=== PATIENT | female | born 1955 | race Caucasian/White ===

== ENCOUNTER 2019-02-22 06:18 | Inpatient (IN) | payer OTHER ==
[2019-02-22] MEDS ORDERED: Pantoprazole 40 MG Vial IVPUSH ONE (06:38)
[2019-02-22] MEDS ORDERED: Famotidine 20 MG/2 ML SDV IVPUSH ONE (06:38)
[2019-02-22] MEDS ORDERED: Ondansetron 4 MG/2 ML SDV IVPUSH ONE (06:38)
[2019-02-22] MEDS ORDERED: Lactated Ringers 1,000 ML IV ONE (06:38)
--- NOTE | 2019-02-22 06:38 | EDM.PDOC ---
ED HPI GENERAL MEDICAL PROBLEM - General Chief Complaint: Abdominal Pain Stated Complaint: ABDOMINAL PAIN Time Seen by Provider: 02/22/19 06:35 Source of Information: Reports: Patient, Family (), Old Records ([facility] chart/EMR), Other ([facility] EMR) History Limitations: Reports: No Limitations - History of Present Illness INITIAL COMMENTS - FREE TEXT/NARRATIVE: The patient was brought to the emergency room via private automobile for evaluation of cramping bilateral lower quadrant 7/10 abdominal pain with symptoms starting at about 2 AM this morning. Patient has had about 10 loose bowel movements during the last 24 hours with additional nausea and 2 episodes of emesis shortly prior to arrival. She has also been having some chills, however no history of fever, use of antipyretic medication, or other medications for her symptoms to this point. Her symptoms are similar to previous episodes of diverticulitis with last episode on 12/06/18 treated with Flagyl on an outpatient basis at that time and no other recent antibiotic therapy. No known history of known exposure to infection, food poisoning, etc. No recent history of other abdominal pain, heartburn, melena, gross hematochezia , or any food intolerance, including fatty foods, etc.. She denies any gross hematuria, colic, or other UTI symptoms. The patient also denies any recent cough, wheezing, dyspnea, etc.. The patient denies any chest pain/pressure, heart flutter, dizziness, orthostasis, orthopnea, diaphoresis, paresthesias, recent decreased exercise tolerance, or any other anginal-type symptoms. She did have a half piece of toast at about 5 AM this morning. Onset: Gradual Onset Date: 02/21/19 Duration: Getting Worse, Intermittent Location: Reports: Abdomen. Denies: Head, Face, Neck, Chest, Back, Pelvis, Upper Extremity, Left, Upper Extremity, Right, Lower Extremity, Left, Radiates to Quality: Reports: Ache, Same as Previous Episode, Throbbing, Other (As above) Severity: Moderate Improves with: Reports: None Worsens with: Reports: None Context: Reports: Other (As above). Denies: Sick Contact, Trauma Associated Symptoms: Reports: Fever/Chills. Denies: Confusion, Chest Pain, Cough, Diaphoresis, Headaches, Loss of Appetite, Malaise, Nausea/Vomiting, Shortness of Breath, Syncope, Weakness Treatments ROUTE RETURNER: Reports: Other (see below) (None) Abdominal Pain Score (Numeric/FACES): 7 - Related Data Allergies Allergy/AdvReac Type Severity Reaction Status Date / Time No Known Allergies Allergy Verified 02/22/19 06:37 Home Meds: Home Meds Omeprazole [priLOSEC OTC] 20 mg PO DAILY 03/20/14 [History] buPROPion [Wellbutrin XL] 300 mg PO BEDTIME 03/20/14 [History] Multivitamins [Tab-A-Edwina] 1 each PO DAILY 02/22/19 [History] Past Medical History HEENT History: Reports: Impaired Vision, Other (See Below). Denies: Allergic Rhinitis, Cataract, Glaucoma, Hard of Hearing, Macular Degeneration, Otitis Media, Retinal Detachment Other HEENT History: Wears glasses Cardiovascular History: Reports: None. Denies: Afib, Aneurysm, Arrhythmia, Blood Clots/VTE/DVT, CAD, Heart Failure, Heart Murmur, High Cholesterol, Hypertension, Syncope Respiratory History: Reports: COPD, Other (See Below). Denies: Asthma, Bronchitis, Recurrent, Intubation, Previous, PE, Pneumonia, Recurrent, Pneumothorax, Sleep Apnea, TB Other Respiratory History: COPD by chest x-ray with no medical therapy required Gastrointestinal History: Reports: Colon Polyp, Diverticulosis, GERD, Irritable Bowel Syndrome, Other (See Below). Denies: Celiac Disease, Cholelithiasis, Chronic Constipation, Chronic Diarrhea, Fecal Incontinence, Gastritis, GI Bleed , Hepatitis, Hiatal Hernia, Inflammatory Bowel Disease, Jaundice, Pancreatitis, PUD Other Gastrointestinal History: IBS with possible abdominal/intestinal migraines with attacks usually on a every 3-4 month basis since about 2007, Benign multiple hemangiomas of the liver by CT scan/MRI as below, accessory spleen by MRI. History of recurrent adenomatous colonic polyps with lesions noted both in the ascending colon and descending colon. Severe diverticulitis of the descending and sigmoid colon with secondary peritonitis on 07/07/16. Genitourinary History: Reports: None. Denies: Acute Renal Failure, Chronic Renal Insuffiency, Renal Calculus, STD, Urinary Incontinence, UTI, Recurrent DIRECTOR OF EMERGENCY NURSING History: Reports: Dysfunctional Uterine Bleeding, Fibroids : 4 Para: 4 Other DIRECTOR OF EMERGENCY NURSING History: Surgical menopause. hemorrhage with first delivery was otherwise Full term without complications during pregnancies or deliveries Musculoskeletal History: Reports: None. Denies: Amputation, Arthritis, Back Pain, Chronic, Fracture, Gout, Neck Pain, Chronic, Osteoarthritis, RA, SLE Neurological History: Reports: Seizure, Other (See Below). Denies: Cerebral Aneurysms, Concussion, CVA, Headaches, Chronic, Head Trauma, Migraines, MS, Neuropathy, Diabetic, Neuropathy, Peripheral, Parkinson's, TIA, Vertigo Other Neuro History: Fever seizure as an infant Psychiatric History: Reports: Anxiety, Depression. Denies: Abuse, Victim of, ADD, ADHD, Addiction, Psych Hospitalization(s), PTSD, Suicide Attempt, Suicidal Ideation Endocrine/Metabolic History: Reports: None. Denies: Diabetes, Type I, Diabetes , Type II, Diabetes Mellitus, Type 3c, Hypothyroidism, IDDM Hematologic History: Reports: Anemia, Iron Deficiency, Other (See Below). Denies: Blood Transfusion(s) Other Hematologic History: Iron deficiency at time of dysfunctional uterine bleeding however not since hysterectomy, no blood transfusions required despite hemorrhage as above Immunologic History: Reports: None. Denies: AIDS, HIV, SLE Oncologic (Cancer) History: Reports: None. Denies: Basal Cell Carcinoma, Breast , Cervix, Colon, Hodgkin's Lymphoma, Leukemia, Lymphoma, Malignant Melanoma, Non -Hodgkin's Lymphoma, Ovarian, Squamous Cell Carcinoma, Uterine Dermatologic History: Reports: None. Denies: Eczema, Psoriasis - Infectious Disease History Infectious Disease History: Reports: Chicken Pox, Mumps. Denies: C-Difficile, Measles, Meningitis, Mononucleosis, MRSA, Pertussis (Whooping Cough), Rheumatic Fever, Rubella, Scarlet Fever, Shingles, TB, VRE - Past Surgical History Head Surgeries/Procedures: Reports: None HEENT Surgical History: Reports: Oral Surgery, Other (See Below). Denies: Adenoidectomy, Cataract Surgery, Eye Surgery, Laser Surgery, LASIK, Myringotomy w Tube(s), Naso-Sinus Surgery, Tonsillectomy Other HEENT Surgeries/Procedures: [place] teeth extraction 4 in about 1973 Cardiovascular Surgical History: Reports: None. Denies: Varicose Respiratory Surgical History: Reports: None. Denies: Thoracentesis GI Surgical History: Reports: Colonoscopy, Polypectomy, Other (See Below). Denies: Appendectomy, Cholecystectomy, EGD, Hernia, Abdominal, Hernia, Inguinal , Hernia Repair/Other Other GI Surgeries/Procedures: Excision of multiple previous adenomatous colonic polyps as above with previous colonoscopies on 07/13/12 and 05/25/11. Female Surgical History: Reports: Hysterectomy, Salpingo-Oophorectomy, Other (See Below). Denies: Breast Biopsy, Section, D&C, Tubal Ligation Other Female Surgeries/Procedures: Laparoscopic-assisted total hysterectomy including bilateral salpingo-oophorectomy on 07/24/09 secondary to dysfunctional uterine bleeding as above. Endocrine Surgical History: Reports: None. Denies: Thyroid Biopsy Neurological Surgical History: Reports: None. Denies: C-Spine, Discectomy, Laminectomy, Lumbar Spine, Sacral Spine, Spinal Fusion, Thoracic Spine, Vertebroplasty Musculoskeletal Surgical History: Reports: None. Denies: Arthroscopic Procedure , Carpal Tunnel, Ganglion Cyst, Joint Replacement, ORIF, Shoulder Surgery Oncologic Surgical History: Reports: None Dermatological Surgical History: Reports: None - Past Imaging History Past Imaging History: Reports: CAT Scan (CT of the abdomen and pelvis on 07/07/16 and 02/13/09.), HIDA Scan (04/01/11), Mammogram (Last on 04/17/18), MRI (Abdomen on 03/03/09), Stress Testing (Negative Cardiolite stress test on 03/23/14 with ejection fraction of 73%.), Ultrasound (Abdominal ultrasound on 03/10/11. Abdominal and pelvic ultrasound on 02/03/09. Pelvic ultrasound on 08/19/08.) Social & Family History - Family History Family Medical History: Unobtainable HEENT: Reports: None. Denies: Glaucoma, Macular Degeneration, Retinal Detachment Cardiac: Reports: CAD, Heart Failure, Hypertension, NE, Other (See Below). Denies: Afib, Aneurysm, Arrhythmia, Blood Clots/VTE/DVT, High Cholesterol, PVD/ COD, Syncope Other Cardiac Family History: Paternal grandmother with fatal NE in her 80s, father with hypertension, maternal grandmother with probable fatal CHF in her 90s Respiratory: Reports: COPD, Other (See Below). Denies: Asthma, PE, Pneumothorax , Sleep Apnea Other Respiratory Family Hisory: Father with COPD/Perez's lung and nocturnal hypoxemia GI: Reports: Cholelithiasis, Colon Polyps, Irritable Bowel Syndrome, Other (See Below). Denies: Celiac Disease, GERD, GI bleed, Inflammatory Bowel Disease, PUD Other GI Family History: Mother with history of cholelithiasis and possible irritable bowel syndrome, father with benign colonic polyps : Reports: None. Denies: Renal Calculus, Renal Disease/Insufficiency OBGYN: Reports: Dysfunctional uterine bleeding, Endometriosis, Fibroids, Other ( See Below). Denies: Recurrent Spontaneous Other OBGYN Family History: Sister with endometriosis, sister with dysfunction uterine bleeding and secondary hysterectomy with all 3 sisters and mother also having hysterectomies Musculoskeletal: Reports: None. Denies: Arthritis, Gout, RA, SLE Neurological: Reports: CVA. Denies: Alzheimers Disease, Cerebral Aneurysms, Dementia, Migraines, MS, Neuropathy, Peripheral, Parkinson's, Seizure, TIA Other Neurological Family History: Paternal grandmother with recurrent CVA Psychiatric: Reports: Anxiety, Depression, Other (See Below). Denies: Abuse, Victim of, ADD, ADHD, Psych Hospitalization(s), PTSD, Suicide Attempt Other Psychiatric Family History: Anxiety depression disorder in father and sister Endocrine/Metabolic: Reports: Diabetes, type II, IDDM, Other (See Below). Denies: Diabetes, Gestational, Diabetes, Type I, Diabetes Mellitus, Type 3c, Hypothyroidism Other Endocrine/Metabolic Family History: Paternal grandmother with IDDM, father with AODM Hematologic: Reports: None. Denies: Anemia Immunologic: Reports: None. Denies: AIDS, HIV, SLE, Other (See Below) Dermatologic: Reports: None. Denies: Eczema, Psoriasis Oncologic: Reports: Breast (Mother with breast cancer at age 82), Renal, Other ( See Below). Denies: Colon, Hodgkin's Lymphoma, Leukemia, Lymphoma, Metastatic, Non-Hodgkin's Lymphoma, Ovarian, Skin, Uterine Other Oncologic Family History: Mother with breast cancer at age 82. Son with kidney cancer at age 38. - Tobacco Use Smoking Status *Q: Never Smoker Tobacco Use Within Last Twelve Months: No Used Tobacco, but Quit: No Smoking Cessation Information Provided To Patient: No Second Hand Smoke Exposure: No Second Hand Smoke Education Provided: No - Caffeine Use Caffeine Use: Reports: Tea (3 cups per day). Denies: Coffee, Energy Drinks, Soda - Alcohol Use Alcohol Use History: Yes Days Per Week of Alcohol Use: 0 Number of Drinks Per Day: 1 Number of Drinks Per Day Comment: Usually wine about every 3 months. No previous DWIs, problems with alcohol abuse, etc. 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 ED EXAM, GI/ABD - Physical Exam Exam: See Below Exam Limited By: No Limitations General Appearance: Alert, WD/WN, No Apparent Distress Eyes: Bilateral: Normal Appearance (No nystagmus. Patient wearing glasses), EOMI (PERRLA) Ears: Normal External Exam, Normal Canal, Hearing Grossly Normal, Normal TMs Nose: Normal Inspection, Normal Mucosa, No Blood Throat/Mouth: Normal Inspection, Normal Lips, Normal Teeth, Normal Gums, Normal Oropharynx, Normal Voice, No Airway Compromise. No: Dysphagia, Perioral Cyanosis Head: Atraumatic, Normocephalic. No: Facial Swelling, Facial Tenderness, Sinus Tenderness Neck: Normal Inspection, Supple, Non-Tender, Full Range of Motion. No: Carotid Bruit, Lymphadenopathy (L), Lymphadenopathy (R), Thyromegaly Respiratory/Chest: No Respiratory Distress, Lungs Clear, Normal Breath Sounds, No Accessory Muscle Use, Chest Non-Tender. No: Pleural Rub, Retractions Cardiovascular: Normal Peripheral Pulses, Regular Rate, Rhythm, No Edema, No Gallop, No JVD, No Murmur, No Rub. No: Tachycardia (Resolved at time of exam) GI/Abdominal Exam: Normal Bowel Sounds, No Organomegaly, No Distention, No Abnormal Bruit, No Mass, Pelvis Stable, Tender (Mild to moderate palpation pain in the lower quadrants bilaterally left greater than right). No: Guarding, Rigid, Rebound (Female) Exam: Deferred Rectal (Female) Exam: Normal Exam, Normal Rectal Tone, Heme - Stool, Other ( Stool incontinencemild). No: Black Stool, Bloody Stool, Tenderness (No Randy space tenderness) Back Exam: Normal Inspection, Full Range of Motion, CVA Tenderness (L), CVA Tenderness (R). No: Muscle Spasm Extremities: Normal Inspection, Normal Range of Motion, Non-Tender, No Pedal Edema, Normal Capillary Refill. No: Andrea's Sign Neurological: Alert, Oriented, CN II-XII Intact, Normal Cognition, Normal Gait, Normal Reflexes (Negative Babinski's), No Motor/Sensory Deficits Psychiatric: Normal Affect, Normal Mood Skin Exam: Warm, Dry, Intact, Normal Color, No Rash. No: Diaphoretic, Ecchymosis, Jaundice, Pallor, Petechiae, Wound/Incision Lymphatic: No Adenopathy Course - Vital Signs Last Recorded V/S: Last Vital Signs Temp 37.7 C 02/22/19 07:15 Pulse 115 H 02/22/19 07:29 Resp 16 02/22/19 07:29 BP 178/89 H 02/22/19 07:29 Pulse Ox 95 02/22/19 07:29 - Orders/Labs/Meds Orders: Active Orders 24 hr Category Date Time Status Oxygen Therapy, ED [RC] PRN Care 02/22/19 07:40 Ordered Peripheral IV Care [RC] . DIRECTED Care 02/22/19 06:39 Active Nothing Per Oral Diet [DIET] Diet 02/22/19 Breakfast Active Abdomen Series w Chest 1V [CR] Routine Exams 02/22/19 06:39 Ordered Abdomen Series w Chest 1V [CR] Stat Exams 02/22/19 06:39 Stop Req HYDROmorphone [Dilaudid] Med 02/22/19 07:33 Ordered 1 mg IVPUSH Q4H PRN Sodium Chloride 0.9% [Saline Flush] Med 02/22/19 06:38 Active 10 ml FLUSH ASDIRECTED PRN Obtain Past Medical Record [OM.PC] Urgent Oth 02/22/19 06:39 Active Peripheral IV Insertion Adult [OM.PC] Stat Oth 02/22/19 06:39 Ordered Resuscitation Status Stat Resus Stat 02/22/19 06:38 Ordered Medication Orders Hydromorphone HCl (Dilaudid) 1 mg IVPUSH Q4H PRN PRN Reason: Pain (severe 7-10) Last Admin: 02/22/19 07:35 Dose: 1 mg Sodium Chloride (Saline Flush) 10 ml FLUSH ASDIRECTED PRN PRN Reason: Keep Vein Open Last Admin: 02/22/19 06:59 Dose: 10 ml Admin: 02/22/19 06:53 Dose: 10 ml Labs: Laboratory Tests 02/22/19 02/22/19 02/22/19 Range/Units 06:37 06:37 06:37 WBC 8.3 (4.0-10.2) K/uL RBC 5.04 (3.77-5.09) M/uL Hgb 15.3 D (11.7-15.5) g/dL Hct 44.2 (34.0-46.0) % MCV 87.7 (84.0-98.0) fL MCH 30.4 (28.2-33.3) pg MCHC 34.6 (31.7-36.0) g/dL RDW 13.2 (11.2-14.1) % Plt Count 182 (150-350) K/uL Neut % (Auto) 93.4 H (45.0-80.0) % Lymph % (Auto) 5.1 L (10.0-50.0) % [place] % (Auto) 0.4 L (2.0-14.0) % Eos % (Auto) 1.0 (0.0-5.0) % Baso % (Auto) 0.1 (0.0-2.0) % Neut # (Auto) 7.72 H (1.40-7.00) K/uL Lymph # (Auto) 0.42 L (0.50-3.50) K/uL [place] # (Auto) 0.03 (0.00-1.00) K/uL Eos # (Auto) 0.08 (0.00-0.50) K/uL Baso # (Auto) 0.01 (0.00-0.20) K/uL PT 10.2 (9.5-12.0) SEC INR 0.9 APTT 26.9 (21.0-31.3) SEC Sodium (136-145) mmol/L Potassium (3.5-5.1) mmol/L Chloride (98-107) mmol/L Carbon Dioxide (21.0-32.0) mmol/L BUN (7-18) mg/dL Creatinine (0.51-1.17) mg/dL Est Cr Clr Drug Dosing mL/min Estimated GFR (MDRD) mL/min Glucose (74-106) mg/dL Lactic Acid (0.4-2.0) mmol/L Uric Acid (2.6-7.2) mg/dL Calcium (8.5-10.1) mg/dL Magnesium (1.8-2.4) mg/dL Total Bilirubin (0.2-1.0) mg/dL AST (15-37) U/L ALT (12-78) U/L Alkaline Phosphatase (46-116) IU/L Total Protein (6.4-8.2) g/dL Albumin (3.4-5.0) g/dL Amylase 35 (25-115) U/L Lipase (73-393) U/L 02/22/19 02/22/19 Range/Units 06:37 06:37 WBC (4.0-10.2) K/uL RBC (3.77-5.09) M/uL Hgb (11.7-15.5) g/dL Hct (34.0-46.0) % MCV (84.0-98.0) fL MCH (28.2-33.3) pg MCHC (31.7-36.0) g/dL RDW (11.2-14.1) % Plt Count (150-350) K/uL Neut % (Auto) (45.0-80.0) % Lymph % (Auto) (10.0-50.0) % [place] % (Auto) (2.0-14.0) % Eos % (Auto) (0.0-5.0) % Baso % (Auto) (0.0-2.0) % Neut # (Auto) (1.40-7.00) K/uL Lymph # (Auto) (0.50-3.50) K/uL [place] # (Auto) (0.00-1.00) K/uL Eos # (Auto) (0.00-0.50) K/uL Baso # (Auto) (0.00-0.20) K/uL PT (9.5-12.0) SEC INR APTT (21.0-31.3) SEC Sodium 141 (136-145) mmol/L Potassium 3.7 (3.5-5.1) mmol/L Chloride 104 (98-107) mmol/L Carbon Dioxide 27.1 (21.0-32.0) mmol/L BUN 13 (7-18) mg/dL Creatinine 0.74 (0.51-1.17) mg/dL Est Cr Clr Drug Dosing 68.07 mL/min Estimated GFR (MDRD) > 60 mL/min Glucose 103 (74-106) mg/dL Lactic Acid 0.8 (0.4-2.0) mmol/L Uric Acid 2.7 (2.6-7.2) mg/dL Calcium 9.2 (8.5-10.1) mg/dL Magnesium 1.6 L (1.8-2.4) mg/dL Total Bilirubin 0.7 (0.2-1.0) mg/dL AST 20 (15-37) U/L ALT 24 (12-78) U/L Alkaline Phosphatase 96 (46-116) IU/L Total Protein 7.7 (6.4-8.2) g/dL Albumin 4.2 (3.4-5.0) g/dL Amylase (25-115) U/L Lipase 90 (73-393) U/L Meds: Medications Generic Name Dose Route Start Last Admin Trade Name Freq PRN Reason Stop Dose Admin Hydromorphone HCl 1 mg 02/22/19 07:33 02/22/19 07:35 Dilaudid IVPUSH 1 mg Q4H PRN Administration Pain (severe 7-10) Sodium Chloride 10 ml 02/22/19 06:38 02/22/19 07:36 Saline Flush FLUSH 10 ml ASDIRECTED PRN Administration Keep Vein Open Discontinued Medications Generic Name Dose Route Start Last Admin Trade Name Freq PRN Reason Stop Dose Admin Famotidine 40 mg 02/22/19 06:38 02/22/19 06:53 Pepcid IVPUSH 02/22/19 06:39 40 mg ONETIME ONE Administration Lactated Ringer's 1,000 mls @ 999 mls/hr 02/22/19 06:38 02/22/19 06:53 Ringers, Lactated IV 02/22/19 07:38 999 mls/hr .BOLUS ONE Administration Metoclopramide HCl 10 mg 02/22/19 07:04 02/22/19 07:08 Reglan IVPUSH 02/22/19 07:05 10 mg ONETIME ONE Administration Ondansetron HCl 4 mg 02/22/19 06:38 02/22/19 06:53 Zofran IVPUSH 02/22/19 06:39 4 mg ONETIME ONE Administration Pantoprazole Sodium 40 mg 02/22/19 06:38 02/22/19 06:53 Protonix Iv IVPUSH 02/22/19 06:39 40 mg ONETIME ONE Administration - Radiology Interpretation Free Text/Narrative:: Acute abdominal x-rays showed evidence of moderate diffuse stool with nonspecific bowel gaseous pattern and no evidence of free air, fluid levels, ileus, obstruction, cardiomegaly, CHF, pulmonary infiltrates, pneumothorax, etc. Mild pulmonary obstructive disease noted. Departure - Departure Time of Disposition: 08:00 Disposition: Admitted As Inpatient 67 Condition: Good Clinical Impression: Mixed anxiety depressive disorder, Peptic reflux disease, Hypomagnesemia Abdominal pain Qualifiers: Abdominal location: generalized Qualified Code(s): R10.84 - Generalized abdominal pain COPD (chronic obstructive pulmonary disease) Qualifiers: COPD type: emphysema Emphysema type: panlobular Qualified Code(s): J43.1 - Panlobular emphysema - Discharge Information *PRESCRIPTION DRUG MONITORING PROGRAM REVIEWED*: Not Applicable *COPY OF PRESCRIPTION DRUG MONITORING REPORT IN PATIENT GEOFF: Not Applicable Referrals: Geovanna Salas PA [Primary Care Provider] - Forms: ED Department Discharge Care Plan Goals: See plan. - Problem List & Annotations (1) Abdominal pain SNOMED Code(s): 26522026 Code(s): R10.9 - UNSPECIFIED ABDOMINAL PAIN Status: Acute Priority: High Current Visit: Yes Onset Date: 07/07/16 Annotation/Comment:: Probable acute diverticulitis with no secondary peritonitis noted at this time. Various therapeutic options were discussed with the patient and her with delay of CT scan of the abdomen and pelvis for the time being. Note that the patient was previously recommended to have a renal ultrasound as workup secondary to her son's recent diagnosis of kidney cancer, however the patient does not have any renal symptoms at this time, including hematuria, etc.. Consider CT scan of the abdomen and pelvis during this hospitalization depending on her clinical course. Aggressive therapy in the emergency room as above with IV Cipro and IV Flagyl to be initiated after admission. Note high-dose IV Pepcid and IV Protonix were also given as GI prophylaxis. She does have an additional previous history of possible intestinal migraines, irritable bowel syndrome, recurrent colonic polyps, etc. as above with colonoscopy already scheduled at [facility] on 03/28/19. Further GI consultation, earlier workup, etc. as needed. She has been receiving acupuncture for her chronic intermittent abdominal pain with overall good results in the past. No leukocytosis today, however significant symptoms, left shift, etc. requiring hospitalization. Secondary to her diarrhea obtain stool specimens for culture and sensitivity, C. difficile, etc. with additional celiac screen secondary to her history of recurrent symptoms. Continue aggressive IV fluids during initial phases of this hospitalization with IV bolus of lactated Ringer's initiated in the emergency room. Qualifiers: Abdominal location: generalized Qualified Code(s): R10.84 - Generalized abdominal pain (2) COPD (chronic obstructive pulmonary disease) SNOMED Code(s): 73930249 Code(s): J44.9 - CHRONIC OBSTRUCTIVE PULMONARY DISEASE, UNSPECIFIED Status : Chronic Priority: Medium Current Visit: Yes Annotation/Comment:: No medical therapy previously required. No recent history of bronchitic-type symptoms despite mild fever as above. Consider PFTs depending on her clinical course. Qualifiers: COPD type: emphysema Emphysema type: panlobular Qualified Code(s): J43.1 - Panlobular emphysema (3) Mixed anxiety depressive disorder SNOMED Code(s): 106360430 Code(s): F41.8 - OTHER SPECIFIED ANXIETY DISORDERS Status: Chronic Priority: Medium Current Visit: Yes Annotation/Comment:: Stable by history. Continue to observe closely by regular providers. (4) Peptic reflux disease SNOMED Code(s): 208315711 Code(s): K21.9 - GASTRO-ESOPHAGEAL REFLUX DISEASE WITHOUT ESOPHAGITIS Status: Chronic Priority: Medium Current Visit: Yes Annotation/Comment:: IV Pepcid, IV Reglan, and IV Protonix given in the emergency room as GI prophylaxis as above. Otherwise under good control by history with patient not yet taken her morning medications. (5) Hypomagnesemia SNOMED Code(s): 448756864 Code(s): E83.42 - HYPOMAGNESEMIA Status: Acute Priority: Medium Current Visit: Yes Onset Date: 02/22/19 Annotation/Comment:: Observe for now. IV lactated Ringer's given in the emergency room. No magnesium oxide supplementation for now secondary to her diarrhea. - Problem List Review Problem List Initiated/Reviewed/Updated: Yes - My Orders Last 24 Hours: My Active Orders 02/22/19 06:38 Sodium Chloride 0.9% [Saline Flush] 10 ml FLUSH ASDIRECTED PRN Resuscitation Status Stat 02/22/19 06:39 Peripheral IV Care [RC] . DIRECTED Abdomen Series w Chest 1V [CR] Routine Abdomen Series w Chest 1V [CR] Stat Obtain Past Medical Record [OM.PC] Urgent Peripheral IV Insertion Adult [OM.PC] Stat 02/22/19 07:33 HYDROmorphone [Dilaudid] 1 mg IVPUSH Q4H PRN 02/22/19 07:40 Oxygen Therapy, ED [RC] PRN 02/22/19 Breakfast Nothing Per Oral Diet [DIET] - Assessment/Plan Admission H&P: Please use this note as an admission H&P Last 24 Hours: My Active Orders 02/22/19 06:38 Sodium Chloride 0.9% [Saline Flush] 10 ml FLUSH ASDIRECTED PRN Resuscitation Status Stat 02/22/19 06:39 Peripheral IV Care [RC] . DIRECTED Abdomen Series w Chest 1V [CR] Routine Abdomen Series w Chest 1V [CR] Stat Obtain Past Medical Record [OM.PC] Urgent Peripheral IV Insertion Adult [OM.PC] Stat 02/22/19 07:33 HYDROmorphone [Dilaudid] 1 mg IVPUSH Q4H PRN 02/22/19 07:40 Oxygen Therapy, ED [RC] PRN 02/22/19 Breakfast Nothing Per Oral Diet [DIET] Assessment:: As above Plan: As above. Extensive precautions were given to the patient and her , who are in agreement with the treatment plan. [facility] [place] assumes care later today. The patient will require about 3-4 days of inpatient/acute care secondary to multiple health problems as above.
[2019-02-22] MEDS: Sodium Chloride 0.9% 10 ML Syringe FLUSH PRN ×9 (06:53→20:48)
[2019-02-22] MEDS ORDERED: Metoclopramide 10 MG/2 ML SDV IVPUSH ONE (07:04)
[2019-02-22 07:12] LABS: CHLORIDE,CL 104 mmol/L (98-107); SODIUM,NA 141 mmol/L (136-145)
[2019-02-22] MEDS ORDERED: HYDROmorphone 1 MG/ML Syringe IVPUSH PRN ×2 (07:33→08:09)
[2019-02-22] MEDS ORDERED: traMADol 50 MG Tab PO PRN (08:09)
[2019-02-22] MEDS: metroNIDAZOLE/Normal Saline 500 MG in Premix Bag 1 BAG IV SCH ×2 (08:43→15:24)
[2019-02-22] MEDS: Acetaminophen 325 MG Tab PO PRN ×2 (08:44→14:31)
[2019-02-22] MEDS: D5 1/2 NS w/ 20 mEq/L KCl 1,000 ML IV SCH ×2 (09:44→22:52)
[2019-02-22] MEDS: Ciprofloxacin in D5W 200 MG in Premix Bag 1 BAG IV SCH ×4 (09:44→19:42)
[2019-02-22] MEDS: Ondansetron 4 MG/2 ML SDV IVPUSH PRN ×2 (14:32→20:48)
[2019-02-22] MEDS ORDERED: Metoclopramide 10 MG/2 ML SDV IVPUSH PRN (17:58)
[2019-02-22] MEDS: Sodium Chloride 0.9% 10 ML Syringe FLUSH SCH (19:42)
[2019-02-22] MEDS: Pantoprazole 40 MG Vial IVPUSH SCH (19:43)
[2019-02-22] MEDS ORDERED: Temazepam 15 MG Cap PO PRN (20:00)
[2019-02-22] MEDS ORDERED: Promethazine 25 MG/ML SDV IM ONE (21:19)
[2019-02-22] MEDS: buPROPion 150 MG Tab.ER PO SCH (22:39)
[2019-02-23] MEDS: Sodium Chloride 0.9% 10 ML Syringe FLUSH PRN ×5 (00:31→16:02)
[2019-02-23] MEDS: metroNIDAZOLE/Normal Saline 500 MG in Premix Bag 1 BAG IV SCH ×3 (00:31→16:01)
[2019-02-23] MEDS: Famotidine 20 MG/2 ML SDV IVPUSH SCH ×2 (07:29→19:56)
[2019-02-23] MEDS: Pantoprazole 40 MG Vial IVPUSH SCH ×2 (07:29→19:56)
[2019-02-23] MEDS: Ciprofloxacin in D5W 200 MG in Premix Bag 1 BAG IV SCH ×4 (07:30→19:56)
[2019-02-23] MEDS: Sodium Chloride 0.9% 10 ML Syringe FLUSH SCH ×2 (07:30→19:57)
[2019-02-23] MEDS: Acetaminophen 325 MG Tab PO PRN (07:31)
[2019-02-23 07:45] LABS: CHLORIDE,CL 101 mmol/L (98-107); SODIUM,NA 135 mmol/L (136-145)
[2019-02-23] MEDS ORDERED: Ciprofloxacin in D5W 200 MG in Premix Bag 1 BAG IV SCH ×2 (08:05)
[2019-02-23] MEDS ORDERED: metroNIDAZOLE/Normal Saline 500 MG in Premix Bag 1 BAG IV SCH (08:05)
--- NOTE | 2019-02-23 12:14 | PCM.PN ---
- General Info Date of Service: 02/23/19 Functional Status: Reports: Pain Controlled - Review of Systems General: Reports: Fever, Weakness, Other (Lightheaded) Pulmonary: Reports: No Symptoms Cardiovascular: Reports: No Symptoms Gastrointestinal: Reports: Abdominal Pain, Nausea Genitourinary: Reports: No Symptoms Musculoskeletal: Reports: No Symptoms Skin: Reports: No Symptoms Neurological: Reports: No Symptoms Psychiatric: Reports: No Symptoms - Patient Data Vitals - Most Recent: Last Vital Signs Temp 100.4 F 02/23/19 07:40 Pulse 111 H 02/23/19 07:40 Resp 16 02/23/19 07:40 BP 142/79 H 02/23/19 07:40 Pulse Ox 96 02/23/19 07:40 Weight - Most Recent: 135 lb 0.001 oz I&O - Last 24 Hours: Intake & Output 02/22/19 02/23/19 02/23/19 22:59 06:59 14:59 Intake Total 1021 1102 Output Total 300 300 Balance 721 802 Lab Results Last 24 Hours: Laboratory Results - last 24 hr 02/23/19 02/23/19 02/23/19 Range/Units 07:20 07:20 07:20 WBC 8.7 (4.0-10.2) K/uL RBC 4.31 (3.77-5.09) M/uL Hgb 13.0 D (11.7-15.5) g/dL Hct 38.3 (34.0-46.0) % MCV 88.9 (84.0-98.0) fL MCH 30.2 (28.2-33.3) pg MCHC 33.9 (31.7-36.0) g/dL RDW 13.2 (11.2-14.1) % Plt Count 131 L (150-350) K/uL Neut % (Auto) 93.9 H (45.0-80.0) % Lymph % (Auto) 3.1 L (10.0-50.0) % [place] % (Auto) 2.9 (2.0-14.0) % Eos % (Auto) 0.0 (0.0-5.0) % Baso % (Auto) 0.1 (0.0-2.0) % Neut # (Auto) 8.14 H (1.40-7.00) K/uL Lymph # (Auto) 0.27 L (0.50-3.50) K/uL [place] # (Auto) 0.25 (0.00-1.00) K/uL Eos # (Auto) 0.00 (0.00-0.50) K/uL Baso # (Auto) 0.01 (0.00-0.20) K/uL Sodium 135 L (136-145) mmol/L Potassium 3.6 (3.5-5.1) mmol/L Chloride 101 (98-107) mmol/L Carbon Dioxide 23.3 (21.0-32.0) mmol/L BUN 11 (7-18) mg/dL Creatinine 0.73 (0.51-1.17) mg/dL Est Cr Clr Drug Dosing 69.50 mL/min Estimated GFR (MDRD) > 60 mL/min Glucose 136 H (74-106) mg/dL Lactic Acid 1.0 (0.4-2.0) mmol/L Calcium 8.1 L (8.5-10.1) mg/dL Magnesium 1.3 L (1.8-2.4) mg/dL Total Bilirubin 0.7 (0.2-1.0) mg/dL AST 17 (15-37) U/L ALT 23 (12-78) U/L Alkaline Phosphatase 61 (46-116) IU/L Total Protein 6.3 L (6.4-8.2) g/dL Albumin 3.0 L (3.4-5.0) g/dL Jamarcus Results Last 24 Hours: Microbiology 02/22/19 11:30 Urine Culture - Final Urine, Clean Catch MIXED KOTA SUGGESTIVE OF CONTAMINATION. 02/22/19 08:30 Aerobic Blood Culture - Preliminary Blood - Venous - Lab Draw Gram Negative Rods Anaerobic Blood Culture - Preliminary Gram Negative Rods 02/22/19 06:37 Aerobic Blood Culture - Preliminary Blood - Venous Gram Negative Rods Anaerobic Blood Culture - Preliminary Gram Negative Rods Med Orders - Current: Current Medications Acetaminophen (Tylenol) 650 mg PO Q4H PRN PRN Reason: Pain Last Admin: 02/23/19 07:31 Dose: 650 mg Bupropion HCl (Wellbutrin Xl) 300 mg PO BEDTIME TED Last Admin: 02/22/19 22:39 Dose: 300 mg Famotidine (Pepcid) 20 mg IVPUSH Q12H [facility] Last Admin: 02/23/19 07:29 Dose: 20 mg Hydromorphone HCl (Dilaudid) 1 mg IVPUSH Q4H PRN PRN Reason: Pain (severe 7-10) Potassium Chloride/Dextrose/Sod Cl (D5 1/2 Ns W/ 20 Meq/L Kcl) 1,000 mls @ 100 mls/hr IV ASDIRECTED [facility] Last Admin: 02/22/19 22:52 Dose: 100 mls/hr Ciprofloxacin/Dextrose 200 mg/ (Premix) 100 mls @ 100 mls/hr IV Q12H [facility] Last Admin: 02/23/19 07:30 Dose: 100 mls/hr Metronidazole 500 mg/ Premix 100 mls @ 100 mls/hr IV Q8H [facility] Last Admin: 02/23/19 08:47 Dose: 100 mls/hr Lactated Ringer's (Ringers, Lactated) 1,000 mls @ 125 mls/hr IV ASDIRECTED [facility] Metoclopramide HCl (Reglan) 10 mg IVPUSH Q6H PRN PRN Reason: Nausea/Vomiting Last Admin: 02/22/19 18:23 Dose: 10 mg Ondansetron HCl (Zofran) 4 mg IVPUSH Q6H PRN PRN Reason: Nausea/Vomiting Last Admin: 02/22/19 20:48 Dose: 4 mg Pantoprazole Sodium (Protonix Iv) 40 mg IVPUSH Q12H [facility] Last Admin: 02/23/19 07:29 Dose: 40 mg Sodium Chloride (Saline Flush) 10 ml FLUSH ASDIRECTED PRN PRN Reason: Keep Vein Open Last Admin: 02/23/19 08:47 Dose: 10 ml Sodium Chloride (Saline Flush) 10 ml FLUSH Q12HR [facility] Last Admin: 02/23/19 07:30 Dose: 10 ml Temazepam (Restoril) 15 mg PO DAILY@2000 PRN PRN Reason: Insomnia Tramadol HCl (Ultram) 50 mg PO Q6H PRN PRN Reason: Pain (moderate 4-6) Last Admin: 02/22/19 14:31 Dose: 50 mg Discontinued Medications Famotidine (Pepcid) 40 mg IVPUSH ONETIME ONE Stop: 02/22/19 06:39 Last Admin: 02/22/19 06:53 Dose: 40 mg Hydromorphone HCl (Dilaudid) 1 mg IVPUSH Q4H PRN PRN Reason: Pain (severe 7-10) Last Admin: 02/22/19 07:35 Dose: 1 mg Lactated Ringer's (Ringers, Lactated) 1,000 mls @ 999 mls/hr IV .BOLUS ONE Stop: 02/22/19 07:38 Last Admin: 02/22/19 06:53 Dose: 999 mls/hr Ciprofloxacin/Dextrose 200 mg/ (Premix) 100 mls @ 100 mls/hr IV Q12H [facility] Metronidazole 500 mg/ Premix 100 mls @ 100 mls/hr IV Q8H TED Metoclopramide HCl (Reglan) 10 mg IVPUSH ONETIME ONE Stop: 02/22/19 07:05 Last Admin: 02/22/19 07:08 Dose: 10 mg Ondansetron HCl (Zofran) 4 mg IVPUSH ONETIME ONE Stop: 02/22/19 06:39 Last Admin: 02/22/19 06:53 Dose: 4 mg Pantoprazole Sodium (Protonix Iv) 40 mg IVPUSH ONETIME ONE Stop: 02/22/19 06:39 Last Admin: 02/22/19 06:53 Dose: 40 mg Promethazine HCl (Phenergan) 50 mg IM ONETIME ONE Stop: 02/22/19 21:20 Last Admin: 02/22/19 21:53 Dose: 50 mg - Exam General: Alert, Oriented HEENT: Pupils Equal, Pupils Reactive, EOMI, Mucous Membr. Moist/[employer] Neck: Supple Lungs: Clear to Auscultation, Normal Respiratory Effort Cardiovascular: Regular Rate, Regular Rhythm GI/Abdominal Exam: Normal Bowel Sounds, Soft, Non-Tender, No Organomegaly. No: Distended (Female) Exam: Deferred Back Exam: Normal Inspection, Full Range of Motion Extremities: Normal Inspection, Normal Range of Motion, Non-Tender, No Pedal Edema, Normal Capillary Refill Skin: Warm, Dry, Intact Neurological: No New Focal Deficit Psy/Mental Status: Alert, Normal Affect, Normal Mood - Problem List & Annotations (1) Diverticulitis SNOMED Code(s): 578415982 Code(s): K57.92 - DVTRCLI OF INTEST, PART UNSP, W/O PERF OR ABSCESS W/O BLEED Status: Acute Priority: High Current Visit: No Onset Date: Qualifiers: Diverticulitis site: large intestine Diverticulitis bleeding: without bleeding Diverticulitis complication: without perforation or abscess Qualified Code(s): K57.32 - Diverticulitis of large intestine without perforation or abscess without bleeding Annotation/Comment:: Patient admitted to the hospital yesterday with abdominal pain possible diverticulitis started him on antibiotics doing much better today I will start her on clear liquids and do a CT of the abdomen with contrast.. - Problem List Review Problem List Initiated/Reviewed/Updated: Yes - My Orders Last 24 Hours: My Active Orders 02/23/19 16:07 Abdomen Pelvis w Cont [CT] Routine 02/23/19 Dinner Clear Liquid Diet [DIET]
[2019-02-23] MEDS: Lactated Ringers 1,000 ML IV SCH (13:04)
[2019-02-23] MEDS ORDERED: Iopamidol 612 MG/ML 100 ML Bottle IVPUSH ONE (15:00)
[2019-02-23] MEDS: buPROPion 150 MG Tab.ER PO SCH (19:56)
[2019-02-24] MEDS: metroNIDAZOLE/Normal Saline 500 MG in Premix Bag 1 BAG IV SCH ×3 (00:19→16:05)
[2019-02-24] MEDS: Lactated Ringers 1,000 ML IV SCH (00:23)
[2019-02-24 07:39] LABS: CHLORIDE,CL 106 mmol/L (98-107); SODIUM,NA 140 mmol/L (136-145)
[2019-02-24] MEDS: Acetaminophen 325 MG Tab PO PRN ×2 (08:00→21:27)
[2019-02-24] MEDS: Pantoprazole 40 MG Vial IVPUSH SCH ×2 (08:01→20:54)
[2019-02-24] MEDS: Famotidine 20 MG/2 ML SDV IVPUSH SCH ×2 (08:01→20:54)
[2019-02-24] MEDS: Sodium Chloride 0.9% 10 ML Syringe FLUSH PRN ×3 (08:01→16:07)
[2019-02-24] MEDS: Sodium Chloride 0.9% 10 ML Syringe FLUSH SCH ×2 (08:01→20:58)
[2019-02-24] MEDS: Ciprofloxacin in D5W 200 MG in Premix Bag 1 BAG IV SCH ×4 (08:01→20:58)
--- NOTE | 2019-02-24 20:17 | PCM.PN ---
- General Info Date of Service: 02/24/19 Admission Dx/Problem (Free Text): Patient admitted with abdominal pain secondary to diverticulitis CAT scan confirmed diagnosis patient feeling better we'll continue antibiotics as ordered cultures came back positive for Escherichia coli Functional Status: Reports: Pain Controlled, Tolerating Diet - Review of Systems General: Reports: Other (Abdominal) HEENT: Reports: No Symptoms Pulmonary: Reports: No Symptoms Cardiovascular: Reports: No Symptoms Gastrointestinal: Reports: Abdominal Pain, Nausea Genitourinary: Reports: No Symptoms Musculoskeletal: Reports: No Symptoms Skin: Reports: No Symptoms Neurological: Reports: No Symptoms Psychiatric: Reports: No Symptoms - Patient Data Vitals - Most Recent: Last Vital Signs Temp 99.9 F 02/24/19 08:00 Pulse 95 02/24/19 08:00 Resp 16 02/24/19 08:00 BP 119/73 02/24/19 08:00 Pulse Ox 96 02/24/19 08:00 Weight - Most Recent: 134 lb 14.4 oz I&O - Last 24 Hours: Intake & Output 02/24/19 02/24/19 02/24/19 06:59 14:59 22:59 Intake Total 1527 350 200 Output Total 1150 800 Balance 377 350 -600 Lab Results Last 24 Hours: Laboratory Results - last 24 hr 02/24/19 02/24/19 Range/Units 06:58 06:58 WBC 6.0 (4.0-10.2) K/uL RBC 4.10 (3.77-5.09) M/uL Hgb 12.3 (11.7-15.5) g/dL Hct 36.5 (34.0-46.0) % MCV 89.0 (84.0-98.0) fL MCH 30.0 (28.2-33.3) pg MCHC 33.7 (31.7-36.0) g/dL RDW 13.1 (11.2-14.1) % Plt Count 115 L (150-350) K/uL Neut % (Auto) 85.8 H (45.0-80.0) % Lymph % (Auto) 7.9 L (10.0-50.0) % [place] % (Auto) 6.1 (2.0-14.0) % Eos % (Auto) 0.0 (0.0-5.0) % Baso % (Auto) 0.2 (0.0-2.0) % Neut # (Auto) 5.11 (1.40-7.00) K/uL Lymph # (Auto) 0.47 L (0.50-3.50) K/uL [place] # (Auto) 0.36 (0.00-1.00) K/uL Eos # (Auto) 0.00 (0.00-0.50) K/uL Baso # (Auto) 0.01 (0.00-0.20) K/uL Sodium 140 (136-145) mmol/L Potassium 3.6 (3.5-5.1) mmol/L Chloride 106 (98-107) mmol/L Carbon Dioxide 24.5 (21.0-32.0) mmol/L BUN 10 (7-18) mg/dL Creatinine 0.67 (0.51-1.17) mg/dL Est Cr Clr Drug Dosing 75.72 mL/min Estimated GFR (MDRD) > 60 mL/min Glucose 98 (74-106) mg/dL Calcium 8.2 L (8.5-10.1) mg/dL Jamarcus Results Last 24 Hours: Microbiology 02/22/19 06:37 Aerobic Blood Culture - Final Blood - Venous Escherichia Coli. Anaerobic Blood Culture - Final Escherichia Coli. 02/22/19 08:30 Aerobic Blood Culture - Final Blood - Venous - Lab Draw Escherichia Coli. Anaerobic Blood Culture - Final Escherichia Coli. Med Orders - Current: Current Medications Acetaminophen (Tylenol) 650 mg PO Q4H PRN PRN Reason: Pain Last Admin: 02/24/19 08:00 Dose: 650 mg Bupropion HCl (Wellbutrin Xl) 300 mg PO BEDTIME [facility] Last Admin: 02/23/19 19:56 Dose: 300 mg Famotidine (Pepcid) 20 mg IVPUSH Q12H [facility] Last Admin: 02/24/19 08:01 Dose: 20 mg Hydromorphone HCl (Dilaudid) 1 mg IVPUSH Q4H PRN PRN Reason: Pain (severe 7-10) Ciprofloxacin/Dextrose 200 mg/ (Premix) 100 mls @ 100 mls/hr IV Q12H [facility] Last Admin: 02/24/19 08:01 Dose: 100 mls/hr Metronidazole 500 mg/ Premix 100 mls @ 100 mls/hr IV Q8H [facility] Last Admin: 02/24/19 16:05 Dose: 100 mls/hr Metoclopramide HCl (Reglan) 10 mg IVPUSH Q6H PRN PRN Reason: Nausea/Vomiting Last Admin: 02/22/19 18:23 Dose: 10 mg Ondansetron HCl (Zofran) 4 mg IVPUSH Q6H PRN PRN Reason: Nausea/Vomiting Last Admin: 02/22/19 20:48 Dose: 4 mg Pantoprazole Sodium (Protonix Iv) 40 mg IVPUSH Q12H [facility] Last Admin: 02/24/19 08:01 Dose: 40 mg Sodium Chloride (Saline Flush) 10 ml FLUSH ASDIRECTED PRN PRN Reason: Keep Vein Open Last Admin: 02/24/19 16:07 Dose: 10 ml Sodium Chloride (Saline Flush) 10 ml FLUSH Q12HR [facility] Last Admin: 02/24/19 08:01 Dose: 10 ml Temazepam (Restoril) 15 mg PO DAILY@2000 PRN PRN Reason: Insomnia Tramadol HCl (Ultram) 50 mg PO Q6H PRN PRN Reason: Pain (moderate 4-6) Last Admin: 02/22/19 14:31 Dose: 50 mg Discontinued Medications Famotidine (Pepcid) 40 mg IVPUSH ONETIME ONE Stop: 02/22/19 06:39 Last Admin: 02/22/19 06:53 Dose: 40 mg Hydromorphone HCl (Dilaudid) 1 mg IVPUSH Q4H PRN PRN Reason: Pain (severe 7-10) Last Admin: 02/22/19 07:35 Dose: 1 mg Lactated Ringer's (Ringers, Lactated) 1,000 mls @ 999 mls/hr IV .BOLUS ONE Stop: 02/22/19 07:38 Last Admin: 02/22/19 06:53 Dose: 999 mls/hr Ciprofloxacin/Dextrose 200 mg/ (Premix) 100 mls @ 100 mls/hr IV Q12H [facility] Potassium Chloride/Dextrose/Sod Cl (D5 1/2 Ns W/ 20 Meq/L Kcl) 1,000 mls @ 100 mls/hr IV ASDIRECTED [facility] Last Admin: 02/22/19 22:52 Dose: 100 mls/hr Metronidazole 500 mg/ Premix 100 mls @ 100 mls/hr IV Q8H [facility] Lactated Ringer's (Ringers, Lactated) 1,000 mls @ 125 mls/hr IV ASDIRECTED [facility] Last Admin: 02/24/19 00:23 Dose: 125 mls/hr Iopamidol (Isovue-300 (61%)) 100 ml IVPUSH ONETIME ONE Stop: 02/23/19 15:01 Last Admin: 02/23/19 19:57 Dose: Not Given Metoclopramide HCl (Reglan) 10 mg IVPUSH ONETIME ONE Stop: 02/22/19 07:05 Last Admin: 02/22/19 07:08 Dose: 10 mg Ondansetron HCl (Zofran) 4 mg IVPUSH ONETIME ONE Stop: 02/22/19 06:39 Last Admin: 02/22/19 06:53 Dose: 4 mg Pantoprazole Sodium (Protonix Iv) 40 mg IVPUSH ONETIME ONE Stop: 02/22/19 06:39 Last Admin: 02/22/19 06:53 Dose: 40 mg Promethazine HCl (Phenergan) 50 mg IM ONETIME ONE Stop: 02/22/19 21:20 Last Admin: 02/22/19 21:53 Dose: 50 mg - Exam General: Alert, Oriented HEENT: Pupils Equal, Pupils Reactive, EOMI, Mucous Membr. Moist/[place] Neck: Supple Lungs: Clear to Auscultation, Normal Respiratory Effort Cardiovascular: Regular Rate, Regular Rhythm GI/Abdominal Exam: Normal Bowel Sounds (Female) Exam: Normal External Exam, Normal Speculum Exam, Normal Bimanual Exam Back Exam: Normal Inspection, Full Range of Motion Extremities: Normal Inspection, Normal Range of Motion, Non-Tender, No Pedal Edema, Normal Capillary Refill Skin: Warm, Dry, Intact Wound/Incisions: Healing Well Neurological: No New Focal Deficit - Problem List & Annotations (1) Diverticulitis SNOMED Code(s): 984994049 Code(s): K57.92 - DVTRCLI OF INTEST, PART UNSP, W/O PERF OR ABSCESS W/O BLEED Status: Acute Priority: High Current Visit: No Onset Date: Qualifiers: Diverticulitis site: large intestine Diverticulitis bleeding: without bleeding Diverticulitis complication: without perforation or abscess Qualified Code(s): K57.32 - Diverticulitis of large intestine without perforation or abscess without bleeding Annotation/Comment:: Patient admitted to the hospital yesterday with abdominal pain possible diverticulitis started him on antibiotics doing much better today I will start her on clear liquids and do a CT of the abdomen with contrast.. - Problem List Review Problem List Initiated/Reviewed/Updated: Yes - My Orders Last 24 Hours: My Active Orders 02/24/19 Breakfast Full Liquid Diet [DIET]
[2019-02-24] MEDS: buPROPion 150 MG Tab.ER PO SCH (20:53)
[2019-02-25] MEDS: metroNIDAZOLE/Normal Saline 500 MG in Premix Bag 1 BAG IV SCH ×4 (04:46→23:57)
[2019-02-25 07:29] LABS: CHLORIDE,CL 106 mmol/L (98-107); SODIUM,NA 142 mmol/L (136-145)
[2019-02-25] MEDS: Pantoprazole 40 MG Vial IVPUSH SCH ×2 (07:52→21:06)
[2019-02-25] MEDS: Sodium Chloride 0.9% 10 ML Syringe FLUSH SCH ×2 (07:53→21:03)
[2019-02-25] MEDS: Ciprofloxacin in D5W 200 MG in Premix Bag 1 BAG IV SCH ×4 (07:53→21:07)
[2019-02-25] MEDS: Famotidine 20 MG/2 ML SDV IVPUSH SCH ×2 (07:53→21:01)
--- NOTE | 2019-02-25 12:43 | PCM.PN ---
- General Info Date of Service: 02/25/19 Admission Dx/Problem (Free Text): Patient admitted with diverticulitis started on antibiotic doing much better still having left lower quadrant pain and tenderness at episode of fever control with Tylenol white count improving will continue on IV antibiotics 1 more day discharge home tomorrow Functional Status: Reports: Pain Controlled, Tolerating Diet - Review of Systems General: Reports: No Symptoms HEENT: Reports: No Symptoms Pulmonary: Reports: No Symptoms Cardiovascular: Reports: No Symptoms Gastrointestinal: Reports: No Symptoms Genitourinary: Reports: No Symptoms Musculoskeletal: Reports: No Symptoms Skin: Reports: No Symptoms Neurological: Reports: No Symptoms Psychiatric: Reports: No Symptoms - Patient Data Vitals - Most Recent: Last Vital Signs Temp 100.8 F H 02/24/19 20:00 Pulse 102 H 02/24/19 20:00 Resp 16 02/24/19 20:00 BP 127/77 02/24/19 20:00 Pulse Ox 99 02/24/19 20:00 Weight - Most Recent: 134 lb 14.4 oz I&O - Last 24 Hours: Intake & Output 02/24/19 02/25/19 02/25/19 22:59 06:59 14:59 Intake Total 200 300 Output Total 800 Balance -600 300 Lab Results Last 24 Hours: Laboratory Results - last 24 hr 02/25/19 02/25/19 Range/Units 07:01 07:01 WBC 5.3 (4.0-10.2) K/uL RBC 4.42 (3.77-5.09) M/uL Hgb 13.1 (11.7-15.5) g/dL Hct 39.5 (34.0-46.0) % MCV 89.4 (84.0-98.0) fL MCH 29.6 (28.2-33.3) pg MCHC 33.2 (31.7-36.0) g/dL RDW 13.4 (11.2-14.1) % Plt Count 134 L (150-350) K/uL MPV 9.40 (7.00-11.50) fL Sodium 142 (136-145) mmol/L Potassium 3.6 (3.5-5.1) mmol/L Chloride 106 (98-107) mmol/L Carbon Dioxide 27.2 (21.0-32.0) mmol/L BUN 12 (7-18) mg/dL Creatinine 0.67 (0.51-1.17) mg/dL Est Cr Clr Drug Dosing 75.72 mL/min Estimated GFR (MDRD) > 60 mL/min Glucose 105 (74-106) mg/dL Calcium 8.6 (8.5-10.1) mg/dL [facility] Results Last 24 Hours: Microbiology 02/22/19 06:37 Aerobic Blood Culture - Final Blood - Venous Escherichia Coli. Anaerobic Blood Culture - Final Escherichia Coli. 02/22/19 08:30 Aerobic Blood Culture - Final Blood - Venous - Lab Draw Escherichia Coli. Anaerobic Blood Culture - Final Escherichia Coli. Med Orders - Current: Current Medications Acetaminophen (Tylenol) 650 mg PO Q4H PRN PRN Reason: Pain Last Admin: 02/24/19 21:27 Dose: 650 mg Bupropion HCl (Wellbutrin Xl) 300 mg PO BEDTIME [facility] Last Admin: 02/24/19 20:53 Dose: 300 mg Famotidine (Pepcid) 20 mg IVPUSH Q12H [facility] Last Admin: 02/25/19 07:53 Dose: 20 mg Hydromorphone HCl (Dilaudid) 1 mg IVPUSH Q4H PRN PRN Reason: Pain (severe 7-10) Ciprofloxacin/Dextrose 200 mg/ (Premix) 100 mls @ 100 mls/hr IV Q12H [facility] Last Admin: 02/25/19 07:53 Dose: 100 mls/hr Metronidazole 500 mg/ Premix 100 mls @ 100 mls/hr IV Q8H [facility] Last Admin: 02/25/19 07:53 Dose: 100 mls/hr Metoclopramide HCl (Reglan) 10 mg IVPUSH Q6H PRN PRN Reason: Nausea/Vomiting Last Admin: 02/22/19 18:23 Dose: 10 mg Ondansetron HCl (Zofran) 4 mg IVPUSH Q6H PRN PRN Reason: Nausea/Vomiting Last Admin: 02/22/19 20:48 Dose: 4 mg Pantoprazole Sodium (Protonix Iv) 40 mg IVPUSH Q12H [facility] Last Admin: 02/25/19 07:52 Dose: 40 mg Sodium Chloride (Saline Flush) 10 ml FLUSH ASDIRECTED PRN PRN Reason: Keep Vein Open Last Admin: 02/24/19 16:07 Dose: 10 ml Sodium Chloride (Saline Flush) 10 ml FLUSH Q12HR [facility] Last Admin: 02/25/19 07:53 Dose: 10 ml Temazepam (Restoril) 15 mg PO DAILY@2000 PRN PRN Reason: Insomnia Tramadol HCl (Ultram) 50 mg PO Q6H PRN PRN Reason: Pain (moderate 4-6) Last Admin: 02/22/19 14:31 Dose: 50 mg Discontinued Medications Famotidine (Pepcid) 40 mg IVPUSH ONETIME ONE Stop: 02/22/19 06:39 Last Admin: 02/22/19 06:53 Dose: 40 mg Hydromorphone HCl (Dilaudid) 1 mg IVPUSH Q4H PRN PRN Reason: Pain (severe 7-10) Last Admin: 02/22/19 07:35 Dose: 1 mg Lactated Ringer's (Ringers, Lactated) 1,000 mls @ 999 mls/hr IV .BOLUS ONE Stop: 02/22/19 07:38 Last Admin: 02/22/19 06:53 Dose: 999 mls/hr Ciprofloxacin/Dextrose 200 mg/ (Premix) 100 mls @ 100 mls/hr IV Q12H [facility] Potassium Chloride/Dextrose/Sod Cl (D5 1/2 Ns W/ 20 Meq/L Kcl) 1,000 mls @ 100 mls/hr IV ASDIRECTED [facility] Last Admin: 02/22/19 22:52 Dose: 100 mls/hr Metronidazole 500 mg/ Premix 100 mls @ 100 mls/hr IV Q8H [facility] Lactated Ringer's (Ringers, Lactated) 1,000 mls @ 125 mls/hr IV ASDIRECTED [facility] Last Admin: 02/24/19 00:23 Dose: 125 mls/hr Iopamidol (Isovue-300 (61%)) 100 ml IVPUSH ONETIME ONE Stop: 02/23/19 15:01 Last Admin: 02/23/19 19:57 Dose: Not Given Metoclopramide HCl (Reglan) 10 mg IVPUSH ONETIME ONE Stop: 02/22/19 07:05 Last Admin: 02/22/19 07:08 Dose: 10 mg Ondansetron HCl (Zofran) 4 mg IVPUSH ONETIME ONE Stop: 02/22/19 06:39 Last Admin: 02/22/19 06:53 Dose: 4 mg Pantoprazole Sodium (Protonix Iv) 40 mg IVPUSH ONETIME ONE Stop: 02/22/19 06:39 Last Admin: 02/22/19 06:53 Dose: 40 mg Promethazine HCl (Phenergan) 50 mg IM ONETIME ONE Stop: 02/22/19 21:20 Last Admin: 02/22/19 21:53 Dose: 50 mg - Exam General: Alert, Oriented HEENT: Pupils Equal, Pupils Reactive, EOMI, Mucous Membr. Moist/[place] Neck: Supple Lungs: Clear to Auscultation, Normal Respiratory Effort Cardiovascular: Regular Rate, Regular Rhythm GI/Abdominal Exam: Normal Bowel Sounds, Tender (Left lower quadrant) Back Exam: Normal Inspection, Full Range of Motion Extremities: Normal Inspection, Normal Range of Motion, Non-Tender, No Pedal Edema, Normal Capillary Refill Skin: Warm, Dry, Intact Wound/Incisions: Healing Well Neurological: No New Focal Deficit Psy/Mental Status: Alert, Normal Affect, Normal Mood - Problem List & Annotations (1) Diverticulitis SNOMED Code(s): 807031323 Code(s): K57.92 - DVTRCLI OF INTEST, PART UNSP, W/O PERF OR ABSCESS W/O BLEED Status: Acute Priority: High Current Visit: No Onset Date: Qualifiers: Diverticulitis site: large intestine Diverticulitis bleeding: without bleeding Diverticulitis complication: without perforation or abscess Qualified Code(s): K57.32 - Diverticulitis of large intestine without perforation or abscess without bleeding Annotation/Comment:: Patient diagnosed with diverticulitis grew Escherichia coli has been on antibiotics did develop left lower quadrant pain improving low- grade temperature improving will continue on IV antibiotics for 1 day and discharge home tomorrow. - Problem List Review Problem List Initiated/Reviewed/Updated: Yes
[2019-02-25] MEDS: Sodium Chloride 0.9% 10 ML Syringe FLUSH PRN ×2 (16:13→21:13)
[2019-02-25] MEDS: buPROPion 150 MG Tab.ER PO SCH (21:03)
[2019-02-25] MEDS: Acetaminophen 325 MG Tab PO PRN (21:26)
[2019-02-26] MEDS: Famotidine 20 MG/2 ML SDV IVPUSH SCH (07:48)
[2019-02-26] MEDS: Pantoprazole 40 MG Vial IVPUSH SCH (07:48)
[2019-02-26] MEDS: Sodium Chloride 0.9% 10 ML Syringe FLUSH SCH (07:49)
[2019-02-26] MEDS: Ciprofloxacin in D5W 200 MG in Premix Bag 1 BAG IV SCH ×2 (07:52)
[2019-02-26] MEDS: metroNIDAZOLE/Normal Saline 500 MG in Premix Bag 1 BAG IV SCH (08:59)
--- NOTE | 2019-02-26 09:18 | PCM.DCSUM1 ---
Discharge Summary - Hospital Course Free Text/Narrative:: Patient recently admitted with diverticulitis have been on antibiotics during the night she developed a low-grade fever which responds nice to Tylenol her abdominal pain has improved drastically and at this time I will go ahead and send her home with Modified Kemper Scale: No Symptoms at All Modified Kemper Scale Score: 0 - Discharge Data Discharge Date: 02/26/19 Discharge Disposition: Home, Self-Care 01 Condition: Good - Discharge Diagnosis/Problem(s) (1) Diverticulitis SNOMED Code(s): 499436721 ICD Code: K57.92 - DVTRCLI OF INTEST, PART UNSP, W/O PERF OR ABSCESS W/O BLEED Status: Acute Priority: High Current Visit: No Onset Date: Problem Details: Resolving discharge her home with antibiotics Qualifiers: Diverticulitis site: large intestine Diverticulitis bleeding: without bleeding Diverticulitis complication: without perforation or abscess Qualified Code(s): K57.32 - Diverticulitis of large intestine without perforation or abscess without bleeding - Patient Instructions Driving: Do Not Drive Showering/Bathing: May Shower - Discharge Plan *PRESCRIPTION DRUG MONITORING PROGRAM REVIEWED*: Not Applicable *COPY OF PRESCRIPTION DRUG MONITORING REPORT IN PATIENT GEOFF: Not Applicable Home Medications: Home Meds Omeprazole [priLOSEC OTC] 20 mg PO DAILY 03/20/14 [History] buPROPion [Wellbutrin XL] 300 mg PO BEDTIME 03/20/14 [History] Multivitamins [Tab-A-Edwina] 1 each PO DAILY 02/22/19 [History] Patient Handouts: Abdominal Pain, Adult, Metronidazole injection, Ciprofloxacin injection Forms: ED Department Discharge Referrals: Geovanna Salas PA [Primary Care Provider] - - Discharge Summary/Plan Comment DC Time >30 min.: No Discharge Summary/Plan Comment: Patient did well while in the hospital will be discharged home today on antibiotics for 10 days with 3 refills if she develops abdominal pain she is to start and then come to the ER - General Info Admission Dx/Problem (Free Text: Patient admitted with diverticulitis started on antibiotic doing much better still having left lower quadrant pain and tenderness at episode of fever control with Tylenol white count improving will continue on IV antibiotics 1 more day discharge home tomorrow Functional Status: Reports: Pain Controlled, Tolerating Diet - Review of Systems General: Reports: No Symptoms HEENT: Reports: No Symptoms Pulmonary: Reports: No Symptoms Cardiovascular: Reports: No Symptoms Gastrointestinal: Reports: No Symptoms Genitourinary: Reports: No Symptoms Musculoskeletal: Reports: No Symptoms Skin: Reports: No Symptoms Neurological: Reports: No Symptoms Psychiatric: Reports: No Symptoms - Patient Data Vitals - Most Recent: Last Vital Signs Temp 101.8 F H 02/25/19 20:00 Pulse 96 02/25/19 20:00 Resp 16 02/25/19 20:00 BP 134/86 02/25/19 20:00 Pulse Ox 98 02/25/19 20:00 Weight - Most Recent: 134 lb 14.4 oz I&O - Last 24 hours: Intake & Output 02/25/19 02/26/19 02/26/19 22:59 06:59 14:59 Intake Total 120 50 Balance 120 50 Med Orders - Current: Current Medications Acetaminophen (Tylenol) 650 mg PO Q4H PRN PRN Reason: Pain Last Admin: 02/25/19 21:26 Dose: 650 mg Bupropion HCl (Wellbutrin Xl) 300 mg PO BEDTIME TED Last Admin: 02/25/19 21:03 Dose: 300 mg Famotidine (Pepcid) 20 mg IVPUSH Q12H TED Last Admin: 02/26/19 07:48 Dose: 20 mg Hydromorphone HCl (Dilaudid) 1 mg IVPUSH Q4H PRN PRN Reason: Pain (severe 7-10) Ciprofloxacin/Dextrose 200 mg/ (Premix) 100 mls @ 100 mls/hr IV Q12H [facility] Last Admin: 02/26/19 07:52 Dose: 100 mls/hr Metronidazole 500 mg/ Premix 100 mls @ 100 mls/hr IV Q8H TED Last Admin: 02/26/19 08:59 Dose: 100 mls/hr Metoclopramide HCl (Reglan) 10 mg IVPUSH Q6H PRN PRN Reason: Nausea/Vomiting Last Admin: 02/22/19 18:23 Dose: 10 mg Ondansetron HCl (Zofran) 4 mg IVPUSH Q6H PRN PRN Reason: Nausea/Vomiting Last Admin: 02/22/19 20:48 Dose: 4 mg Pantoprazole Sodium (Protonix Iv) 40 mg IVPUSH Q12H [facility] Last Admin: 02/26/19 07:48 Dose: 40 mg Sodium Chloride (Saline Flush) 10 ml FLUSH ASDIRECTED PRN PRN Reason: Keep Vein Open Last Admin: 02/25/19 21:13 Dose: 10 ml Sodium Chloride (Saline Flush) 10 ml FLUSH Q12HR [facility] Last Admin: 02/26/19 07:49 Dose: 10 ml Temazepam (Restoril) 15 mg PO DAILY@2000 PRN PRN Reason: Insomnia Tramadol HCl (Ultram) 50 mg PO Q6H PRN PRN Reason: Pain (moderate 4-6) Last Admin: 02/22/19 14:31 Dose: 50 mg Discontinued Medications Famotidine (Pepcid) 40 mg IVPUSH ONETIME ONE Stop: 02/22/19 06:39 Last Admin: 02/22/19 06:53 Dose: 40 mg Hydromorphone HCl (Dilaudid) 1 mg IVPUSH Q4H PRN PRN Reason: Pain (severe 7-10) Last Admin: 02/22/19 07:35 Dose: 1 mg Lactated Ringer's (Ringers, Lactated) 1,000 mls @ 999 mls/hr IV .BOLUS ONE Stop: 02/22/19 07:38 Last Admin: 02/22/19 06:53 Dose: 999 mls/hr Ciprofloxacin/Dextrose 200 mg/ (Premix) 100 mls @ 100 mls/hr IV Q12H [facility] Potassium Chloride/Dextrose/Sod Cl (D5 1/2 Ns W/ 20 Meq/L Kcl) 1,000 mls @ 100 mls/hr IV ASDIRECTED [facility] Last Admin: 02/22/19 22:52 Dose: 100 mls/hr Metronidazole 500 mg/ Premix 100 mls @ 100 mls/hr IV Q8H [facility] Lactated Ringer's (Ringers, Lactated) 1,000 mls @ 125 mls/hr IV ASDIRECTED [facility] Last Admin: 02/24/19 00:23 Dose: 125 mls/hr Iopamidol (Isovue-300 (61%)) 100 ml IVPUSH ONETIME ONE Stop: 02/23/19 15:01 Last Admin: 02/23/19 19:57 Dose: Not Given Metoclopramide HCl (Reglan) 10 mg IVPUSH ONETIME ONE Stop: 02/22/19 07:05 Last Admin: 02/22/19 07:08 Dose: 10 mg Ondansetron HCl (Zofran) 4 mg IVPUSH ONETIME ONE Stop: 02/22/19 06:39 Last Admin: 02/22/19 06:53 Dose: 4 mg Pantoprazole Sodium (Protonix Iv) 40 mg IVPUSH ONETIME ONE Stop: 02/22/19 06:39 Last Admin: 02/22/19 06:53 Dose: 40 mg Promethazine HCl (Phenergan) 50 mg IM ONETIME ONE Stop: 02/22/19 21:20 Last Admin: 02/22/19 21:53 Dose: 50 mg
[2019-02-26 09:36] VITALS: BP 130/78
== END 2019-02-26 11:00 | disposition home or self-care (01) | DRG 392 ==
LOC: LL.ED 06:18 → LL.MS 07:53
PROVIDERS: ADMIT Family Medicine; ATTEND Family Medicine
DX: K57.32 Diverticulitis of large intestine without perforation or abscess without bleeding (principal); H54.7 Unspecified visual loss; K21.9 Gastro-esophageal reflux disease without esophagitis; E83.42 Hypomagnesemia; F41.8 Other specified anxiety disorders; B96.20 Unspecified Escherichia coli [E. coli] as the cause of diseases classified elsewhere; J43.1 Panlobular emphysema; Z79.899 Other long term (current) drug therapy; Z86.010 Personal history of colon polyps; Z90.89 Acquired absence of other organs; Z90.49 Acquired absence of other specified parts of digestive tract
CPT/HCPCS: 36415; 74022; 74177; 80048; 80053; 81001; 82150; 82272; 82784; 83516; 83605; 83690; 83735; 84550; 85025; 85027; 85610; 85730; 87040; 87086; 87186; 96361; 96374; 96375; 99285-25; A9270-GY; C9113; J0744; J1170; J2405; J2550; J2765; J3480; J3490; J7120; Q9967

== ENCOUNTER 2022-06-20 09:04 | Inpatient (IN) | payer MEDICARE, OTHER ==
[2022-06-20] MEDS ORDERED: Lactated Ringers 1,000 ML IV SCH (09:45)
[2022-06-20 10:20] LABS: ANION GAP 10.7 meq/L (7-15)
[2022-06-20 10:24] LABS: PTT,PARTIAL THROMBOPLSTIN TIME 25.9 SEC (23.6-29.8)
[2022-06-20] MEDS ORDERED: Iopamidol 612 MG/ML 100 ML Bottle IVPUSH ONE (11:02)
[2022-06-20] MEDS: Piperacillin/Tazobactam 3.375 GM in Sodium Chloride 0.9% 100 ML IV SCH ×2 (15:20→20:32)
[2022-06-20] MEDS: Sodium Chloride 0.9% 10 ML Syringe FLUSH PRN (15:45)
[2022-06-20] MEDS ORDERED: BUPROPION 300 MG PO SCH (20:00)
[2022-06-20] MEDS: Acetaminophen 325 MG Tab PO PRN (20:30)
[2022-06-20] MEDS: Omeprazole 20 MG Cap.CR PO SCH (20:32)
[2022-06-20] MEDS: Lactated Ringers 1,000 ML IV SCH (20:40)
[2022-06-20] MEDS: Multivitamin Tab PO SCH (21:13)
[2022-06-21] MEDS: Piperacillin/Tazobactam 3.375 GM in Sodium Chloride 0.9% 100 ML IV SCH ×3 (02:54→16:09)
[2022-06-21] MEDS: Acetaminophen 325 MG Tab PO PRN (02:55)
[2022-06-21 07:27] VITALS: PULSE 72
[2022-06-21] MEDS: Omeprazole 20 MG Cap.CR PO SCH (07:27)
[2022-06-21] MEDS: Multivitamin Tab PO SCH (07:28)
[2022-06-21] MEDS: Lactated Ringers 1,000 ML IV SCH (07:29)
[2022-06-21] MEDS ORDERED: Polyethylene Glycol 3350 Powder 510 GM Bot PO SCH (08:00)
[2022-06-21 08:21] LABS: ANION GAP 6.5 meq/L (7-15)
[2022-06-21] MEDS: Sodium Chloride 0.9% 10 ML Syringe FLUSH PRN ×2 (09:00→16:06)
[2022-06-21 18:31] VITALS: BP 153/91
== END 2022-06-21 20:15 | disposition home or self-care (01) | DRG 392 ==
LOC: LL.ED 09:04 → LL.MS 15:20
PROVIDERS: ADMIT Physician Assistant; ATTEND Physician Assistant
DX: K57.32 Diverticulitis of large intestine without perforation or abscess without bleeding (principal); K44.9 Diaphragmatic hernia without obstruction or gangrene; H54.7 Unspecified visual loss; J44.9 Chronic obstructive pulmonary disease, unspecified; D50.9 Iron deficiency anemia, unspecified; K21.9 Gastro-esophageal reflux disease without esophagitis; F41.9 Anxiety disorder, unspecified; F32.A Depression, unspecified; K58.9 Irritable bowel syndrome, unspecified; Z90.710 Acquired absence of both cervix and uterus; Z79.899 Other long term (current) drug therapy
CPT/HCPCS: 36415; 74177; 80053; 81001; 82150; 83605; 83690; 83735; 85025; 85610; 85730; 86140; 96360; 96361; 99223; 99238; 99285-25; A9270-GY; J2543; J3490; J7120; Q9967

== ENCOUNTER 2022-11-15 19:44 | Emergency (ER) | payer MEDICARE, OTHER ==
[2022-11-15 20:33] LABS: ANION GAP 8.3 meq/L (7-15); CHLORIDE,CL 104 mmol/L (98-107); SODIUM,NA 140 mmol/L (136-145)
[2022-11-15 20:34] LABS: ESTIMATED GFR 80 mL/min (>=60)
[2022-11-15] MEDS ORDERED: traMADol 50 MG Tab PO ONE (21:55)
[2022-11-15] MEDS ORDERED: Metoclopramide 10 MG Tab PO ONE (21:55)
[2022-11-15] MEDS ORDERED: Ondansetron 4 MG Tab.DIS PO ONE (21:56)
[2022-11-15] MEDS ORDERED: Lactulose Soln 10 GM/15 ML 30 ML UD Cup PO ONE (21:56)
[2022-11-15] MEDS ORDERED: Ketorolac 30 MG/ML SDV IM ONE (21:58)
[2022-11-15 22:58] VITALS: BP 170/95; PULSE 79
== END 2022-11-15 22:49 | disposition home or self-care (01) ==
LOC: LL.ED 19:44
DX: R10.84 Generalized abdominal pain (principal); J44.9 Chronic obstructive pulmonary disease, unspecified; Z79.899 Other long term (current) drug therapy; Z90.710 Acquired absence of both cervix and uterus
CPT/HCPCS: 36415; 74019; 80053; 81001; 82150; 83605; 83690; 85025; 86140; 96372; 99284; A9270-GY; J1885